=== PATIENT | female | born 1985 | race Hispanic/Latino ===

== ENCOUNTER 2017-06-19 14:06 | Emergency (ER) | payer BC ==
[2017-06-19 14:13] VITALS: BP 140/60; PULSE 78; RESP 18; TEMP 98; O2SAT 98
--- NOTE | 2017-06-19 14:21 | ED PDOC ---
Lower Extremity Pain/Injury Time Seen by Provider: 06/19/17 14:16 Chief Complaint (Nursing): Lower Extremity Problem/Injury Chief Complaint (Provider): Left Foot Injury History Per: Patient History/Exam Limitations: no limitations Onset/Duration Of Symptoms: Days (x1) Current Symptoms Are (Timing): Still Present Additional Complaint(s): Vicki Medeiros is a 31 year old female that presents to the ED with a chief complaint of left foot pain that began yesterday after she was playing basketball and landed improperly on her left foot. Patient reports that she has previously injured her left foot before, but is unsure of whether or not her injury was a fracture. Past Medical History Reviewed: Historical Data, Nursing Documentation, Vital Signs Vital Signs: Last Vital Signs Temp 98 F 06/19/17 14:10 Pulse 78 06/19/17 14:10 Resp 18 06/19/17 14:10 BP 140/60 06/19/17 14:10 Pulse Ox 98 06/19/17 14:10 - Medical History PMH: No Chronic Diseases - Family History Family History: States: Unknown Family Hx - Home Medications Home Medications: Ambulatory Orders Medication Instructions Recorded Naproxen 375 mg PO Q8 PRN #15 tablet 06/19/17 - Allergies Allergies/Adverse Reactions: Allergies Allergy/AdvReac Type Severity Reaction Status Date / Time No Known Allergies Allergy Verified 06/19/17 14:10 Review of Systems Musculoskeletal: Positive for: Foot Pain (left) Physical Exam - Reviewed Nursing Documentation Reviewed: Yes Vital Signs Reviewed: Yes - Physical Exam Appears: Positive for: Non-toxic, No Acute Distress Head Exam: Positive for: ATRAUMATIC, NORMOCEPHALIC Skin: Positive for: Normal Color, Warm Eye Exam: Positive for: Normal appearance, EOMI, PERRL Pulses-Dorsalis Pedis (L): 2+ Pulses-Dorsalis Pedis (R): 2+ Pulses-Post. Tibialis (L): 2+ Pulses-Post. Tibialis (R): 2+ Extremity: Positive for: Tenderness (TTP left mid foot. No TTP ankle. ), Other ( No ecchymosis left foot. ) Neurologic/Psych: Positive for: Alert, Oriented. Negative for: Motor/Sensory Deficits - ECG O2 Sat by Pulse Oximetry: 98 (RA) Pulse Ox Interpretation: Normal - Radiology X-Ray: Viewed By Me (no acute changes) Medical Decision Making Medical Decision Making: Impression: Left Ankle Injury Plan: * X-Ray Left Foot * Reevaluation Scribe Attestation: Documented by Paola Ch, acting as a scribe for Neil Alonso PA-C. Provider Scribe Attestation: All medical record entries made by the Scribe were at my direction and personally dictated by me. I have reviewed the chart and agree that the record accurately reflects my personal performance of the history, physical exam, medical decision making, and the department course for this patient. I have also personally directed, reviewed, and agree with the discharge instructions and disposition. Disposition - Clinical Impression Clinical Impression: Foot sprain - Patient ED Disposition Is Patient to be Admitted: No - Disposition Disposition: Routine/Home Disposition Time: 14:38 Condition: FAIR Prescriptions: Naproxen 375 mg PO Q8 PRN #15 tablet PRN Reason: Pain, Moderate (4-7) Instructions: Foot Sprain (ED) Forms: PROFICIO (Yoruba)
--- NOTE | 2017-06-19 14:46 | RAD ---
PROCEDURE: Left Foot Radiographs. HISTORY: injury COMPARISON: None. FINDINGS: BONES: Normal. No fracture. JOINTS: There is no abnormal widening of the proximal 1st and 2nd tarsal metatarsal joint. No dislocation of the phalanges is identified. Tarsal bones have normal outline. Subtalar joint is within normal limits. Talar dome is normal in outline. SOFT TISSUES: Normal. OTHER FINDINGS: None. IMPRESSION: No appreciable fracture.
== END 2017-06-19 14:54 | disposition home or self-care (01) ==
LOC: H.ER 14:06
DX: S93.602A Unspecified sprain of left foot, initial encounter (principal); X50.9XXA Other and unspecified overexertion or strenuous movements or postures, initial encounter; Y92.310 Basketball court as the place of occurrence of the external cause

== ENCOUNTER 2018-01-12 13:33 | Emergency (ER) | payer BC ==
[2018-01-12 13:38] VITALS: TEMP 98
[2018-01-12] MEDS ORDERED: Sodium Chloride 0.9% 1,000 ML IV STA ×2 (13:49→15:18)
[2018-01-12 14:14] LABS: BASO % 0.5 % (0.0-2.0); EOS % 0.1 % (0.0-4.0); HEMOGLOBIN 13.2 g/dL (12.0-16.0); LYMPH # 0.7 K/uL (1.0-4.3); LYMPH % 7.2 % (20.0-40.0); MEAN CELL VOLUME 88.1 fl (81.0-99.0); MEAN CORPUSCULAR HEMOGLOBIN 29.7 pg (27.0-31.0); MEAN CORPUSCULAR HGB CONC 33.7 g/dL (33.0-37.0); MONO # 0.3 K/uL (0.0-0.8); MONO % 3.8 % (0.0-10.0); NEUT # 8.1 K/uL (1.8-7.0); NEUT % 88.4 % (50.0-75.0); PLATELET COUNT 303 K/uL (130-400); RBC 4.45 Mil/uL (3.80-5.20); RED CELL DISTRIBUTION WIDTH 13.9 % (11.5-14.5); WHITE BLOOD COUNT 9.2 K/uL (4.8-10.8)
[2018-01-12 14:21] LABS: ALB/GLOB RATIO 1.5 (1.0-2.1); ALBUMIN 4.7 g/dL (3.5-5.0); ALT/SGPT 29 U/L (9-52); AST/SGOT 35 U/L (14-36); BLOOD UREA NITROGEN 20 mg/dl (7-17); CALCIUM 9.5 mg/dL (8.4-10.2); GFR AFRICAN-AMERICAN > 60; GFR NON-AFRICAN AMERICAN > 60; LIPASE 67 U/L (23-300)
[2018-01-12 15:19] LABS: BASOPHIL 1 % (0-2); LYMPHOCYTE 12 % (20-50); MONOCYTE 3 % (0-10); NEUTROPHIL 84 % (42-75); PLATELET ESTIMATE NORMAL (NORMAL); TOTAL CELLS COUNTED 100
--- NOTE | 2018-01-12 15:27 | ED PDOC ---
HPI: Abdomen Time Seen by Provider: 01/12/18 13:40 Chief Complaint (Nursing): GI Problem Chief Complaint (Provider): epigastric pain, vomiting after drinking History Per: Patient History/Exam Limitations: no limitations Onset/Duration Of Symptoms: Hrs Outside of [place] travel?: No Current Symptoms Are (Timing): Still Present Location Of Pain/Discomfort: Epigastric Quality Of Discomfort: Burning Associated Symptoms: Nausea, Vomiting. denies: Fever, Chills Additional Complaint(s): Pt states if she even tries to drink water she vomits. Pt reports drinking whiskey last night to celebrate. Pt states she drinking but only beer in the past. No fever/chills. Pt reports some epigastric pain. Past Medical History Reviewed: Historical Data, Nursing Documentation, Vital Signs Vital Signs: Last Vital Signs Temp 98.0 F 01/12/18 13:35 Pulse 105 H 01/12/18 13:35 Resp 16 01/12/18 13:35 BP 113/63 01/12/18 13:35 Pulse Ox 98 01/12/18 13:35 - Medical History PMH: No Chronic Diseases - Surgical History Surgical History: No Surg Hx - Family History Family History: States: Unknown Family Hx - Home Medications Home Medications: Ambulatory Orders Medication Instructions Recorded Naproxen 375 mg PO Q8 PRN #15 tablet 06/19/17 - Allergies Allergies/Adverse Reactions: Allergies Allergy/AdvReac Type Severity Reaction Status Date / Time No Known Allergies Allergy Verified 01/12/18 13:35 Review of Systems ROS Statement: Except As Marked, All Systems Reviewed And Found Negative Constitutional: Negative for: Fever, Chills Respiratory: Negative for: Cough, Shortness of Breath Gastrointestinal: Positive for: Nausea, Vomiting, Abdominal Pain Genitourinary Female: Negative for: Dysuria Physical Exam - Reviewed Nursing Documentation Reviewed: Yes Vital Signs Reviewed: Yes - Physical Exam Appears: Positive for: Well, Non-toxic, No Acute Distress Head Exam: Positive for: ATRAUMATIC, NORMAL INSPECTION, NORMOCEPHALIC Skin: Positive for: Normal Color, Warm, DRY Eye Exam: Positive for: Normal appearance ENT: Positive for: Normal ENT Inspection Neck: Positive for: Normal, Painless ROM Cardiovascular/Chest: Positive for: Regular Rate, Rhythm Respiratory: Positive for: CNT, Normal Breath Sounds Gastrointestinal/Abdominal: Positive for: Normal Exam, Bowel Sounds, Soft. Negative for: Tenderness Back: Positive for: Normal Inspection Extremity: Positive for: Normal ROM Neurologic/Psych: Positive for: Alert, Oriented - Laboratory Results Result Diagrams: 01/12/18 14:08 01/12/18 14:08 - ECG O2 Sat by Pulse Oximetry: 98 Medical Decision Making Medical Decision Making: Pt tolerating water in ER. Reports feeling much better and would like to go home - 1525 Disposition - Clinical Impression Clinical Impression: Hangover without complication - Patient ED Disposition Is Patient to be Admitted: No Counseled Patient/Family Regarding: Diagnosis, Need For Followup - Disposition Disposition: Routine/Home Disposition Time: 15:28 Condition: GOOD Instructions: Effects of Alcohol on Your Health
[2018-01-12 15:55] VITALS: BP 127/84; PULSE 85; RESP 18; O2SAT 100
== END 2018-01-12 15:45 | disposition home or self-care (01) ==
LOC: H.ER 13:33
DX: F10.129 Alcohol abuse with intoxication, unspecified (principal)
CPT/HCPCS: 80053; 83690; 85025; 96360; 99284; J7040